=== PATIENT | female | born 1955 ===

== ENCOUNTER 2018-04-23 12:20 | Emergency (ER) | payer MEDICAID ==
[2018-04-23 12:30] VITALS: RESP 18; TEMP 97.6; BMI 25.6
--- NOTE | 2018-04-23 13:24 | C.PDOC ---
History Of Present Illness 62 year old female, with a PMHx of peripheral vertigo, presents to the ED c/o dizziness that has been present for 2 days. Patient states that she feels like the room is spinning around, and sensation worsens with movement of her head. She states that she typically takes Meclizine for her sxs, but she ran out of the medication yesterday. She denies visual changes, facial droop, slurred speech, extremity weakness, sensory changes, chest pain, palpitations, SOB, headache. Time Seen by Provider: 04/23/18 12:48 Chief Complaint (Nursing): Dizziness/Lightheaded History Per: Patient History/Exam Limitations: no limitations Onset/Duration Of Symptoms: Days (2) Current Symptoms Are (Timing): Still Present Associated Symptoms Preceding Syncopal Episode: Vertigo Worse With Change In Head Position Seizure Or Post-ictal Symptoms: None Fall Associated With With Symptoms: No Additional History Per: Patient Past Medical History Reviewed: Historical Data, Nursing Documentation, Vital Signs Vital Signs: Last Vital Signs Temp 97.6 F 04/23/18 12:25 Pulse 63 04/23/18 12:25 Resp 18 04/23/18 12:25 BP 117/74 04/23/18 12:25 Pulse Ox 98 04/23/18 12:25 - Medical History PMH: Fractures (LEFT ELBOW), HTN, Hypercholesterolemia Surgical History: Endoscopy - [facility] Procedures COLONOSCOPY (07/22/13) Family History: States: No Known Family Hx - Social History Hx Tobacco Use: No Hx Alcohol Use: No Hx Substance Use: No - Immunization History Hx Tetanus Toxoid Vaccination: No Hx Influenza Vaccination: Yes Hx Pneumococcal Vaccination: No Review Of Systems Constitutional: Negative for: Fever, Chills Eyes: Negative for: Vision Change Cardiovascular: Negative for: Chest Pain, Palpitations Respiratory: Negative for: Shortness of Breath Musculoskeletal: Negative for: Other (Extremity weakness ) Neurological: Positive for: Dizziness. Negative for: Weakness, Numbness, Incoordination, Change in Speech, Confusion, Seizures, Altered Mental Status, Headache Physical Exam - Physical Exam Appears: Non-toxic, Other (mildly uncomfortable ) Skin: Normal Color, Warm, Dry, No Rash Head: Atraumatic, Normacephalic Eye(s): bilateral: Normal Inspection, PERRL, EOMI, Other (no nystagmus) Oral Mucosa: Moist Neck: Supple Chest: Symmetrical Cardiovascular: Rhythm Regular, No Murmur Respiratory: Normal Breath Sounds, No Rales, No Rhonchi, No Wheezing Gastrointestinal/Abdominal: Normal Exam, Bowel Sounds, Soft, No Tenderness Extremity: Normal ROM, No Pedal Edema, No Calf Tenderness Pulses: Left Dorsalis Pedis: Normal, Right Dorsalis Pedis: Normal Neurological/Psych: Oriented x3, Normal Speech, Normal Cognition, Normal Cranial Nerves, No Cerebellar Signs, Normal Motor, Normal Sensation ED Course And Treatment O2 Sat by Pulse Oximetry: 98 (on RA) Pulse Ox Interpretation: Normal Progress Note: Accucheck ordered and reviewed. Patient given PO Meclizine. Reevaluation Time: 14:25 Reassessment Condition: Improved (On reassessment, patient is resting comfortably and states her dizziness has resolved. She is ambulating normally in the ED, and is comfortable being discharged home. Rx for Meclizine given. Patient instructed to follow up with PMD, and understands she should return to ED if symptoms worsen.) Disposition Counseled Patient/Family Regarding: Studies Performed, Diagnosis, Need For Followup, Rx Given - Disposition Referrals: Grace Tate APN [Advanced Practice Nurse] - Disposition: HOME/ ROUTINE Disposition Time: 14:30 Condition: STABLE Prescriptions: Meclizine [Meclizine*] 25 mg PO Q6 #15 tab Instructions: Vertigo (a Type of Dizziness) (DC) Forms: [facility] (S[place]i) Print Language: ARGENTINE - Clinical Impression Clinical Impression: Peripheral vertigo - Scribe Statement The provider has reviewed the documentation as recorded by the Julia Flowers All medical record entries made by the Julia were at my direction and personally dictated by me. I have reviewed the chart and agree that the record accurately reflects my personal performance of the history, physical exam, medical decision making, and the department course for this patient. I have also personally directed, reviewed, and agree with the discharge instructions and disposition.
[2018-04-23 14:29] VITALS: BP 125/76; PULSE 57
[2018-04-23 16:24] VITALS: O2SAT 98
== END 2018-04-23 14:46 | disposition home or self-care (01) ==
LOC: C.ER 12:20
DX: H81.399 Other peripheral vertigo, unspecified ear (principal); E78.00 Pure hypercholesterolemia, unspecified; I10 Essential (primary) hypertension